=== PATIENT | female | born 1955 | race Caucasian/White ===

== ENCOUNTER 2018-08-26 12:31 | Emergency (ER) | payer MEDICAID ==
[~2018-08-26] VITALS: Ht 154.9 cm; Wt 95.1 kg
[~2018-08-26 12:31] MED LIST: ATEN25TA PO; HYDR12.53 PO; LEVO150T5 PO; LISI-167 PO
[2018-08-26] MEDS ORDERED: KETOROLAC 30 MG/1 ML ONE (12:58)
[2018-08-26] MEDS ORDERED: ONDANSETRON ODT 4 MG ONE (12:58)
[2018-08-26] MEDS ORDERED: HYDROcodone/APAP 5/325 TABLET ONE (12:58)
[2018-08-26] MEDS ORDERED: CYCLOBENZAPRINE 10 MG TABLET ONE (12:58)
[2018-08-26] MEDS ORDERED: CYCLOBENZAPRINE 10 MG TABLET PO SCH (13:00)
[2018-08-26] MEDS ORDERED: ONDANSETRON ODT 4 MG PO ONE (13:00)
[2018-08-26] MEDS ORDERED: HYDROcodone/APAP 5/325 TABLET PO ONE (13:00)
[2018-08-26] MEDS ORDERED: KETOROLAC 30 MG/1 ML IM ONE (13:00)
[2018-08-26 14:20] VITALS: BP 155/86
== END 2018-08-26 14:34 | disposition home or self-care (01) ==
LOC: ED 14:28
DX: M54.31 Sciatica, right side (principal); I10 Essential (primary) hypertension; E11.9 Type 2 diabetes mellitus without complications; J45.909 Unspecified asthma, uncomplicated
CPT/HCPCS: 72110; 73502; 96372; 99284; J1885; Q0162